=== PATIENT | male | born 1965 | race Two or more races ===

== ENCOUNTER 2025-03-30 12:46 | Emergency (ER) | payer BC, SELFPAY ==
[2025-03-30 12:47] VITALS: BMI 29.4
--- NOTE | 2025-03-30 13:02 | XR_ITS ---
Examination: CT brain head without contrast. 2-D sagittal coronal reconstructions Date and time of exam: March 30, 2025, 1327 hours INDICATIONS: Severe left-sided headache beginning 8 days ago CTDI: vol (mGy): 55.7 DLP: (mGycm): 1101 Technique: Multiple CT axial sections of the brain have been obtained, 5 mm slice thickness. Contrast has not been administered. 2-D sagittal, coronal reconstructions have been obtained Low dose protocols were performed. One or more of the following dose reduction techniques were used; automated exposure control, adjustment of the mA and/or KV according to patient size, use of iterative reconstruction technique. Findings: No significant ventricular enlargement. Intra-axial or extra-axial hemorrhage density is not seen. No mass effect or midline shift Basal cisterns are not remarkable. Fourth ventricle is midline. Cranial vault intact. Impression: Negative for acute hemorrhage, mass effect or midline shift Advise clinical correlation and follow-up accordingly
--- NOTE | 2025-03-30 13:14 | EDNOTE_ITS ---
ED Headache RME/HPI General Chief Complaint: Headache Stated Complaint: L-SIDED HEADACHE X5 WEEKS Time Seen by Provider: 03/30/25 12:58 Arrival date/time: 03/30/25 12:46 Limitations: no limitations RME / HPI RME / HPI Narrative: DR. KHRIS BELLAMY ED EVALUATION: 59-year-old male accompanied by his and son presents to the Emergency Department with headache for 5 weeks, progressively worsening. Pain is located at the back, top left side of the head and occurs daily, worse at night, with last night being unbearable that is why he came in. He describes the pain as intense and throbbing, stating that a few days ago he felt and heard something rupture in his head, followed by worsening throbbing pain, likened to a rubber band snapping inside his brain. He endorses intermittent numbness and shock-like sensations in the left forearm, dizziness, and tearing of the eye without redness. No prior imaging in over 20 years. His primary doctor has initiated a neurology referral and MRI, however appointments are delayed until next year. Past history notable for significant head trauma in 1997, when he fell from a roof and was in a coma for 6 months. Also has a history of thyroid disease. Related Data Previous Rx's ?Medication ?Instructions ?Recorded diphenhydramine HCl 25 mg capsule 25 mg PO TID PRN hea dache #14 caps 03/30/25 (Allergy (diphenhydramine)) ibuprofen 600 mg tablet 600 mg PO TID PRN headache # 14 tabs 03/30/25 metoclopramide HCl 10 mg tablet 10 mg PO TID PRN heada jericho #14 tabs 03/30/25 Allergies Allergy/AdvReac Type Severity Reaction Status Date / Time No Known Allergies Allergy Verified 03/30/25 12:49 Review of Systems Review of Systems Systems Reviewed: All systems reviewed, normal except as documented Past Medical History Social History SMOKING STATUS: Never smoker SUBSTANCE USE: does not use ALCOHOL: Never Past Medical History Comments PMH COMMENT: Past history notable for significant head trauma in 1997, when he fell from a roof and was in a coma for 6 months. Also has a history of thyroid disease. ED Exam General Limitations: Present no limitations General appearance: Present alert and other (uncomfortable) Head Head exam: Present atraumatic and normocephalic Eye Eye exam: Present normal appearance, PERRL and EOMI ENT ENT exam: Present normal exam, normal oropharynx and mucous membranes moist Neck Neck exam: Present normal inspection, full ROM and trachea midline Chest Chest inspection: Present normal inspection and symmetric chest wall rise Respiratory Respiratory exam: Present normal lung sounds bilaterally Cardiovascular Cardiovascular exam: Present regular rate, normal rhythm and normal heart sounds Abdominal Exam Abdominal exam: Present soft and normal bowel sounds Extremities Exam Extremities exam: Present normal inspection and full ROM Back Exam Back exam: Present normal inspection and full ROM Neurological Exam Neurological exam: Present alert, oriented X3, CN II-XII intact and other (reports intermittent left forearm paresthesias) Psychiatric Psychiatric exam: Present normal affect and normal mood Skin Skin exam: Present warm, dry, intact and normal color Course Quality Measures none Orders Category Date Time Status MRI Screening NOW Care 03/30/25 13:[address] head/brain wo con Stat Exams 03/30/25 13:02 Completed MR head/brain wo con Stat Exams 03/30/25 Ordered Acetaminophen Ivpb [Ofirmev Inj] Med 03/30/25 13:02 Discontinued 1,000 mg in 100 ml IV NOW DiphenhydrAMINE [Benadryl] Med 03/30/25 13:00 Discontinued 25 mg PO X1 ONE Metoclopramide [Reglan] Med 03/30/25 13:00 Discontinued 10 mg PO X1 ONE Vital Signs Vital signs: Vital Signs Temperature 98.9 F 03/30/25 13:52 Pulse Rate 61 03/30/25 13:52 Respiratory Rate 17 03/30/25 13:52 Blood Pressure 125/78 03/30/25 13:52 Pulse Oximetry (%) 99 03/30/25 13:52 Oxygen Delivery Method Room Air 03/30/25 13:52 Headache MDM Narrative MDM Narrative:: IMelony am scribing for and in the presence of Dr. Loza. 59-year-old male with subacute progressive headache, nocturnal worsening, focal sensory symptoms, and history of severe prior head trauma. Given red flag features and neurologic complaints, workup initiated to evaluate for intracranial pathology. Differential diagnoses include intracranial mass or bleed, post-traumatic sequelae, and neuralgia or secondary headache disorder. 1515: Had already ordered an MRI but the cotton program technician left at 1500 hours. Patient states he will return Tuesday or Tuesday to get the MRI done, as there is no MRI tomorrow either. He also understands if symptoms worsen to return. Patient data External records reviewed:: Other (specify) (no previous visits) Clinical information provided by:: patient and spouse Social determinants that could affect healthcare access:: none Patient has the following chronic illnesses:: Past history notable for significant head trauma in 1997, when he fell from a roof and was in a coma for 6 months. Also has a history of thyroid disease. How is presenting disease/condition affected by chronic disease/condition?: exacerbated by Evaluation data The following diagnostics were reviewed and interpreted by me:: radiology exam(s) Lab and/or radiology exams considered but not ordered:: MRI but it was not available and patient will return. Interpretation Summary: See MDM narrative above. RADIOLOGY Procedure(s): CT head/brain wo con Accession Number(s): [id number] cc: Kt Warner MD; VINCE REEDER; Alfred Loza MD~ Examination: CT brain head without contrast. 2-D sagittal coronal reconstructions Date and time of exam: March 30, 2025, 1327 hours INDICATIONS: Severe left-sided headache beginning 8 days ago CTDI: vol (mGy): 55.7 DLP: (mGycm): 1101 Technique: Multiple CT axial sections of the brain have been obtained, 5 mm slice thickness. Contrast has not been administered. 2-D sagittal, coronal reconstructions have been obtained Low dose protocols were performed. One or more of the following dose reduction techniques were used; automated exposure control, adjustment of the mA and/or KV according to patient size, use of iterative reconstruction technique. Findings: No significant ventricular enlargement. Intra-axial or extra-axial hemorrhage density is not seen. No mass effect or midline shift Basal cisterns are not remarkable. Fourth ventricle is midline. Cranial vault intact. Impression: Negative for acute hemorrhage, mass effect or midline shift Advise clinical correlation and follow-up accordingly Dictated By: Kt Warner MD Medications / Prescriptions Medications or Prescriptions considered but not ordered:: none Medication administrations:: Medication Administration History Discontinued Medications Diphenhydramine HCl (Diphenhydramine 25 Mg Capsule) 25 mg PO X1 ONE Stop: 03/30/25 13:01 Last Admin: 03/30/25 13:56 Dose: 25 mg Documented By: SOFY Acetaminophen (Ofirmev Inj) 1,000 mg in 100 mls @ 250 mls/hr IV NOW ONE Stop: 03/30/25 13:25 Last Infusion: 03/30/25 14:17 Dose: Infused Documented By: Admin: 03/30/25 13:56 Dose: 250 mls/hr Documented By: SOFY Metoclopramide HCl (Metoclopramide 5 Mg Tablet) 10 mg PO X1 ONE Stop: 03/30/25 13:01 Last Admin: 03/30/25 13:55 Dose: 10 mg Documented By: SOFY see above Consultations Consultation(s) initiated? (list below): No Diagnosis Differential diagnosis headache: other (intracranial mass or bleed, post- traumatic sequelae, and neuralgia or secondary headache disorder) Most likely diagnosis given after review of the tests above:: Headache Admission Indicated Admission indicated?: not indicated Admission Request Was there a request for admission?: No Disposition Plan Disposition Plan: Discharge Discharge Attestation Discharge Attestation: The patient and all family members were given an opportunity to ask questions and understood the discharge instructions. Discharge instructions specifically effects, indications for sooner follow up or return to the emergency department, and the expected course of current diagnosis. Patient condition: Stable Discharge Plan Plan Patient Disposition: HOME (Self Care) Discharge Disposition comment: Stable for discharge home Patient condition on transfer: Stable Prescriptions/Referrals Prescriptions/Med Rec: New metoclopramide HCl 10 mg tablet 10 mg PO TID PRN (Reason: headache) Qty: 14 0RF diphenhydramine HCl [Allergy (diphenhydramine)] 25 mg capsule 25 mg PO TID PRN (Reason: headache) Qty: 14 0RF ibuprofen 600 mg tablet 600 mg PO TID PRN (Reason: headache) Qty: 14 0RF Rx Instructions: When patient has a headache he should take 1 tab of ibuprofen, 1 tab of metoclopramide and 1 tab of Benadryl for headache relief. Referrals: VINCE REEDER [Other] - In 1 week Problem List Clinical Impression: Headache Patient/Caregiver Discharge Instructions Discharge Activity: activity as tolerated Other Activity Instructions:: As tolerated Diet Instructions: No restrictions Education Materials: Migraines and Cluster Headaches, Self-Care for Headaches, Understanding Headache Pain Additional Instructions: Today you were seen in the emergency department for headaches. We performed a CT scan of your head and that was read as basically normal. This means there is no bleeding inside the skull collection of blood or fluid or any other abnormality seen. We gave you 3 medicines here in the ER to help your headache. We gave you a medicine called metoclopramide, one called diphenhydramine and the last one was IV Tylenol. This seemed to work very well. So I will write you prescriptions for the metoclopramide, diphenhydramine as well as 600 mg ibuprofens. When you have a headache at home you should take 1 pill of each of these medicines so total of 3 pills. If you develop a more severe headache, headaches do not go away with the medications or if you feel like you are worsening in any way please return to the ER and we will help you. Otherwise you should follow-up with your primary care doctor and your neurologist as scheduled Print Language: South Sudanese Stand Alone Forms: Nona Award Info., Patient Portal Info Letter
--- NOTE | 2025-03-30 13:22 | PC.NURSE ---
Pt in CT at this time
[2025-03-30 13:52] VITALS: BP 125/78; PULSE 61; RESP 17; TEMP 37.2; O2SAT 99
[2025-03-30] MEDS: METOCLOPRAMIDE 5 MG TABLET 10 MG PO (13:55)
[2025-03-30] MEDS: ACETAMINOPHEN IVPB 1,000 MG/100 ML VIAL 250 MG IV (13:56)
[2025-03-30 15:27] VITALS: BP 116/72; PULSE 50; RESP 12; TEMP 37.1; O2SAT 96
== END 2025-03-30 15:30 | disposition home or self-care (01) ==
PROVIDERS: Emergency Provider Emergency Medicine
DX: R51.9 Headache, unspecified (principal)
CPT/HCPCS: 70450; 96365; 99283; J0131; A9270

== ENCOUNTER 2025-04-02 09:27 | Emergency (ER) | payer BC, SELFPAY ==
--- NOTE | 2025-04-02 | XR_ITS ---
Examination: MRI brain without intravenous contrast. Date and time of exam: April 02, 2025, 1136 hours INDICATIONS: Left-sided headaches several months Technique: Multiple axial and sagittal images of the brain obtained. Siemens high-resolution 1.5 Feli short bore scanners utilized. Sagittal sections, T1-weighted, TR 500, TE 14, are performed. Axial sections proton-density and T2-weighted have been obtained. Inversion recovery axial images, TR 9, 260, TE 111, TI 2500. Diffusion weighted images, axial sections, TR 4800, TE 128, B value 1000 Axial sections, ADC map, TR 4800, TE 128 Findings: Enlargement of the sella turcica is not present. The optic chiasm and infundibular are not remarkable. Prepontine and interpeduncular cisterns are not enlarged. There is no localized enlargement of the medulla or jackie. Fourth ventricle and cerebellar tonsils appear normal in position. No subacute area of hemorrhage density is seen. Mass in the cerebellopontine angle region is not evident. Globes symmetrical. Orbital musculature including medial lateral rectus muscles do not exhibit abnormality. Diffusion-weighted images demonstrate no focus of restricted diffusion. Increased white matter signal evident, punctate focus posterior left parietal white matter FLAIR image 15, smaller punctate focus increased signal left temporal white matter FLAIR image 14 Mass effect upon the ventricular system is not identified. Impression: Negative for acute hemorrhage mass effect or midline shift No acute infarct Scattered punctate foci increased signal in the white matter, demyelinating disease pattern Chronic ethmoid sinusitis
[2025-04-02 09:36] VITALS: BP 137/86; PULSE 56; RESP 16; TEMP 36.7; O2SAT 96; BMI 29.8
--- NOTE | 2025-04-02 09:54 | EKG_ITS ---
[facility] Test Date: 2025-04-02 Pat Name: CLAYTON RAPP Department: Room: - Gender: Male Chief Specialist Leed: : 1965 Requested By: Juan Alberto Galvez Order Number: [id number] Reading MD: Juan Alberto Galvez Measurements Intervals [place] Rate: 55 P: 28 RI: 170 QRS: 0 QRSD: 88 T: 18 QT: 434 QTc: 417 Interpretive Statements SINUS BRADYCARDIA No previous ECG available for comparison /store/S0/[id number].pdf
--- NOTE | 2025-04-02 09:55 | PD.EDRME ---
Rapid Medical Screening Exam [facility] Arrival date/time: 04/02/25 09:27 59-year-old male with no known medical history presents to the emergency room with a chief complaint of a left-sided 8 out of 10 headache that radiates down his left arm causing intermittent numbness. Patient denies any visual disturbances, dizziness, or episodes of altered mental status. I have greeted and performed a focused initial assessment of this patient. A comprehensive ED assessment and evaluation of the patient, analysis of all test results, and completion of the medical decision making process will be conducted by additional ED providers. Chief Complaint: General Adult/Misc Complain Time Seen by Provider: 04/02/25 09:28 Vital signs: Vital Signs Temperature 98.0 F 04/02/25 09:36 Pulse Rate 56 L 04/02/25 09:36 Respiratory Rate 16 04/02/25 09:36 Blood Pressure 137/86 H 04/02/25 09:36 Pulse Oximetry (%) 96 04/02/25 09:36 Oxygen Delivery Method Room Air 04/02/25 09:36 Vital signs reviewed by provider: Yes Exam: GCS 15, alert and oriented x 3, pupils are PERRLA EOMs are intact Clear bilateral lung sounds. Strong and regular rhythm Clinical Impression: Headache
[2025-04-02 10:21] LABS: Collection Type, Urine Clean Catch; RBC,Urine 0 /hpf (0-3); WBC,Urine 0 /hpf (0-5)
[2025-04-02 10:29] LABS: Basophils # (Auto) 0.1 Thou/mm3 (0.0-0.2); Basophils % (Auto) 1 % (0-2.5); Eosinophils # (Auto) 0.1 Thou/mm3 (0.0-0.5); Eosinophils % (Auto) 3 % (0-10); Hematocrit 45.4 % (41.0-53.0); Hemoglobin 15.6 g/dL (13.5-16.0); Immature Granulocytes Auto 0.02 Thou/mm3 (0.00-0.00); Lymphocytes # (Auto) 1.3 Thou/mm3 (1.0-4.8); Lymphocytes % (Auto) 33 % (10-50); Mean Corpuscular HGB Conc 34.4 g/dl (31.0-37.0); Mean Corpuscular Hemoglobin 31.3 pg (25.0-35.0); Mean Corpuscular Volume 91 fL (80-100); Monocytes # (Auto) 0.3 Thou/mm3 (0.0-0.8); Monocytes % (Auto) 7 % (0-12); Neutrophils # (Auto) 2.2 Thou/mm3 (1.8-7.7); Neutrophils % (Auto) 56 % (37-80); Nucleated Red Blood Cell # 0.00 Thou/mm3 (0.00-0.00); Nucleated Red Blood Cell % 0 /100 WBC (0); Platelet Count 193 Thou/mm3 (140-440); RDW Standard Deviation 43.4 fL (35.1-43.9); Red Blood Count 4.99 Miln/mm3 (4.50-5.90); White Blood Count 4.0 Thou/mm3 (3.8-10.6)
[2025-04-02 10:40] LABS: Amphetamine/Methamp Scrn,U Negative (Negative); Barbiturate Screen,Urine Negative (Negative); Benzodiazepines Screen,Urine Negative (Negative); Benzoylecgonine Screen, Ur Negative (Negative); Fentanyl Screen,Urine Negative (Negative); Opiate Screen,Urine Negative (Negative); THC Screen,Urine Negative (Negative)
[2025-04-02 10:43] LABS: Bilirubin,Urine Negative (Negative); Blood,Urine Negative (Negative); Clarity,Urine Clear (Clear/Hazy); Color,Urine Lt-Yellow (Lt Yel-Yel); Culture Indicated,Urine Not Indicated; Glucose, Urine Negative (Negative); Ketones,Urine Negative (Negative); Leukocyte Esterase,Urine Negative (Negative); Nitrite,Urine Negative (Negative); PH,Urine 7.0 (5.0-7.0); Protein,Urine Trace (Neg - Trace); Specific Gravity,Urine 1.026 (1.001-1.035); Squamous Epithelial Cell,Urine < 1 /hpf (0-5); Urobilinogen,Urine Negative mg/dL (0.0-1.0)
[2025-04-02 10:47] LABS: B-Type Natriuretic Peptide < 20 pg/mL (0-100)
[2025-04-02 10:48] LABS: INR 0.9 (0.9-1.3); Partial Thromboplastin Time 26.5 Seconds (22.0-36.0); Prothrombin Time 10.1 Seconds (9.0-12.2)
[2025-04-02 10:52] LABS: Alanine Aminotransferase 28 U/L (10-49); Albumin, Serum 4.7 gm/dL (3.5-5.0); Albumin/Globulin Ratio 1.8 (1.2-2.2); Alkaline Phosphatase 72 U/L (46-116); Anion Gap 8 (7-16); Aspartate Amino Transferase 28 U/L (0-34); BUN/Creatinine Ratio 11 Ratio (12-20); Bilirubin,Total 0.5 mg/dL (0.3-1.2); Blood Urea Nitrogen 10 mg/dL (9-23); Calcium 9.2 mg/dL (8.3-10.6); Calcium (Corrected) 9.2 mg/dL (8.5-10.1); Carbon Dioxide 27.8 mMol/L (20.0-31.0); Chloride 106 mMol/L (98-107); Creatinine (Component) 0.9 mg/dL (0.6-1.3); Estimated Creatinine Clearance 104.4 mL/min (>60); Free T4 (Free Thyroxine) 1.22 ng/dL (0.89-1.76); Globulin 2.6 gm/dL (2.3-3.5); Glucose 113 mg/dL (74-106); Magnesium 2.0 mg/dL (1.6-2.6); Osmolality,Calculated 283 (275-295); Potassium 4.8 mMol/L (3.4-5.1); Sodium 142 mMol/L (136-145); Thyroid Stimulating Hormone 6.11 uIU/mL (0.55-4.78); Total Protein 7.3 gm/dL (5.7-8.2); Troponin I < 0.002 ng/mL (0.0-0.045); eGFR > 60 See Note
--- NOTE | 2025-04-02 11:17 | PD.EDADULT ---
ED General RME/HPI General Chief complaint: General Adult/Misc Complain Stated complaint: RETURN FOR MRI Time Seen by Provider: 04/02/25 09:28 Arrival date/time: 04/02/25 09:27 CC: Headache HPI patient returns to the emergency room after being seen 2 days ago for the same complaint. Left-sided headache that is ongoing for months intermittent in nature. Did provide some relief with ibuprofen last dose was taken last night. Patient denies blurred vision double vision ringing in his ears dry mouth nausea vomiting light sensitivity noise sensitivity. Headache is persistent but now a 3-4 on a 10 scale right parietal region. RME / HPI RME / HPI narrative: 04/02/25 09:27 59-year-old male with no known medical history presents to the emergency room with a chief complaint of a left-sided 8 out of 10 headache that radiates down his left arm causing intermittent numbness. Patient denies any visual disturbances, dizziness, or episodes of altered mental status. I have greeted and performed a focused initial assessment of this patient. A comprehensive ED assessment and evaluation of the patient, analysis of all test results, and completion of the medical decision making process will be conducted by additional ED providers. Exam: GCS 15, alert and oriented x 3, pupils are PERRLA EOMs are intact Clear bilateral lung sounds. Strong and regular rhythm Impression: Headache Related Data Previous Rx's ?Medication ?Instructions ?Recorded diphenhydramine HCl 25 mg capsule 25 mg PO TID PRN headache #14 caps 03/30/25 (Allergy (diphenhydramine)) ibuprofen 600 mg tablet 600 mg PO TID PRN headache #14 tabs 03/30/25 metoclopramide HCl 10 mg tablet 10 mg PO TID PRN headache #14 tabs 03/30/25 Allergies Allergy/AdvReac Type Severity Reaction Status Date / Time No Known Allergies Allergy Verified 04/02/25 09:29 Review of Systems Review of Systems Narrative Review of Systems: GEN: No fever, no chills, no weight loss EYES: No discharge, no visual changes, no pain HEENT: No ear pain, no congestion, no sore throat PULM: No shortness of breath, no cough, no congestion CV: No chest pain, no dyspnea on exertion, no palpitations GI: No nausea, no vomiting, no diarrhea, no pain, no constipation : No frequency, no urgency, no dysuria MUSC/SKEL: No joint pain, no back pain SKIN: No rash PSYCH: No hallucinations, no depression HEME/LYMPH: No easy bleeding or bruising tendencies NEURO: No weakness, + headache Past Medical History Past Medical History CARDIAC: Negative Congestive Heart Failure RESPIRATORY: Negative Respiratory Disorders or Chronic Obstructive Pulmonary Disease (COPD) GENITOURINARY: Negative Renal Disease ENDOCRINE: Negative Diabetes Mellitus Type 1 or Diabetes Mellitus Type 2 Social History SMOKING STATUS: Never smoker SUBSTANCE USE: does not use ED Exam Narrative Physical exam: [General: Not in any acute distress Head normocephalic HEENT: Within acceptable limits Neck is supple nontender Chest equal chest rise nontender to palpation Respiratory: Clear to auscultation no wheezes crackles or rubs CV: Rate rhythm is regular no murmurs rubs or clicks Abdomen is soft nontender no masses positive bowel sounds all 4 quadrants Back: No CVA tenderness no spinous process tenderness from cervical spine thoracic and lumbar spine Skin: Intact no petechiae rash induration ulceration or crepitus Extremities: Moving all extremity against resistance cap refill less than 2 seconds neurosensory intact Neuro: Awake alert oriented x3 Glascow coma 15 no focal deficits, cranial nerves II through XII are grossly intact. Course Course Course Narrative: We discussed with the patient, patient is already has a referral for neurology and follow-up I also suggested headache clinic at one of the tertiary centers and they will consider it. Patient states he is feeling somewhat better. Will discharge him home with a diagnosis of headache. Quality Measures none Orders Category Date Time Status EKG (ED ONLY) *Do not use* NOW Care 04/02/25 09:54 Completed MRI Screening NOW Care 04/02/25 09:54 Active EKG (ED Only) Stat Exams 04/02/25 09:54 Draft MR head/brain wo con Stat Exams 04/02/25 Completed B-Type Natriuretic Peptide Stat Lab 04/02/25 10:20 Completed CBC Stat Lab 04/02/25 10:20 Completed Comprehensive Metabolic Panel Stat Lab 04/02/25 10:20 Completed Drug Screen,Urine Stat Lab 04/02/25 10:10 Completed Free T4 (Free Thyroxine) Stat Lab 04/02/25 10:20 Completed Magnesium Stat Lab 04/02/25 10:20 Completed Partial Thromboplastin Time Stat Lab 04/02/25 10:20 Completed Prothrombin Time with INR Stat Lab 04/02/25 10:20 Completed TSH [Thyroid Stimulating Hormone] Stat Lab 04/02/25 10:20 Completed Troponin I Stat Lab 04/02/25 10:20 Completed Urinalysis, C/S if Indicated Stat Lab 04/02/25 10:10 Completed Ibuprofen Tab [Motrin Tab] Med 04/02/25 11:22 Discontinued 600 mg PO X1 ONE Vital Signs Vital signs: Vital Signs Temperature 98.0 F 04/02/25 09:36 Pulse Rate 56 L 04/02/25 09:36 Respiratory Rate 16 04/02/25 09:36 Blood Pressure 137/86 H 04/02/25 09:36 Pulse Oximetry (%) 96 04/02/25 09:36 Oxygen Delivery Method Room Air 04/02/25 09:36 Discharge Plan Plan Patient Disposition: HOME (Self Care) Patient condition on transfer: Stable Prescriptions/Referrals Prescriptions/Med Rec: No Action metoclopramide HCl 10 mg tablet 10 mg PO TID PRN (Reason: headache) Qty: 14 0RF diphenhydramine HCl [Allergy (diphenhydramine)] 25 mg capsule 25 mg PO TID PRN (Reason: headache) Qty: 14 0RF ibuprofen 600 mg tablet 600 mg PO TID PRN (Reason: headache) Qty: 14 0RF Rx Instructions: When patient has a headache he should take 1 tab of ibuprofen, 1 tab of metoclopramide and 1 tab of Benadryl for headache relief. Referrals: No Primary/Family,Physician [Primary Care Provider] - In 1 week Problem List Clinical Impression: Headache Patient/Caregiver Discharge Instructions Print Language: Lithuanian Stand Alone Forms: Nona Award Info., Work/School Release, Patient Portal Info Letter PA/PRODUCTION ADMINISTRATOR Supervising Physician PA/PRODUCTION ADMINISTRATOR Supervising Physician: Vinicius Álvarez ENP [facility] Clinical Information Provided by: patient and family Medical Records reviewed [facility] Meds/Rx considered, not ordered None Labs/Rad/Tests considered, not ordered None Chronic Illness/Social Conditions which may negatively complicate care or outcome(s)-explain: None or not applicable EKG Interpretation EKG #1: EKG Interpretation: EKG performed at 1002 shows a ventricular to 5 5 NH interval 170 QRS of 88 QTc of 423 sinus bradycardia. Labs Labs: interpreted by nm Lab(s) Interpretation(s): CBC shows no leukocytosis anemia thrombocytopenia Coags within acceptable limits CMP shows no significant electrolyte imbalances other than a glucose at 113. No transaminitis or T. bili elevation Troponin is negative BNP is negative Thank TSH at 6.11 free T41.22. Urine is negative. UDS is negative Imaging Imaging interpretation: interpreted by me Imaging Interpretation(s): MRI of the head is negative for any acute finding other than demyelinating disease. Medication Administration(s) Medication Administration History Discontinued Medications Ibuprofen (Ibuprofen Tab 600 Mg Tablet) 600 mg PO X1 ONE Stop: 04/02/25 11:23 Last Admin: 04/02/25 11:30 Dose: 600 mg Documented By: LINDA
[2025-04-02 11:29] VITALS: BP 129/76; PULSE 52; RESP 17; TEMP 36.8; O2SAT 96
[2025-04-02] MEDS: IBUPROFEN TAB 600 MG TABLET PO (11:30)
== END 2025-04-02 13:01 | disposition home or self-care (01) ==
PROVIDERS: Nurse Practitioner Family; Emergency Provider Family Medicine
DX: R51.9 Headache, unspecified (principal); R00.1 Bradycardia, unspecified
CPT/HCPCS: 36415; 70551; 80053; 80307; 81001; 83735; 83880; 84439; 84443; 84484; 85025; 85610; 85730; 93005; 99283; A9270